=== PATIENT | male | born 1975 | race Two or more races ===

== ENCOUNTER 2022-03-22 08:24 | Outpatient (CLI) | payer OTHER | END 2022-03-22 08:25 | disposition home or self-care (01) | LOC: LAB 08:24 | PROVIDERS: ATTEND Surgery | DX: Z03.818 Encounter for observation for suspected exposure to other biological agents ruled out (principal); I10 Essential (primary) hypertension; R10.9 Unspecified abdominal pain ==

== ENCOUNTER 2022-04-12 05:00 | Day surgery (SDC) | payer OTHER ==
[~2022-04-12] VITALS: Ht 167.6 cm; Wt 73.5 kg
[~2022-04-12 05:00] MED LIST: COZAAR50 MG PO; NORVASC5 MG PO; PEPCID40 MG PO
[2022-04-12] MEDS ORDERED: NEURONTIN300 MG PO (07:45)
[2022-04-12] MEDS ORDERED: TYLENOL ARTHRI650 MG PO (07:45)
[2022-04-12] MEDS ORDERED: MIRALAX17 GM PO (07:45)
[2022-04-12] MEDS ORDERED: ULTRAM50 MG PO (07:45)
== END 2022-04-12 14:55 | disposition home or self-care (01) ==
LOC: CIR.AMB 05:00
PROVIDERS: ATTEND Surgery
DX: K40.90 Unilateral inguinal hernia, without obstruction or gangrene, not specified as recurrent (principal); K42.9 Umbilical hernia without obstruction or gangrene; K21.9 Gastro-esophageal reflux disease without esophagitis; I10 Essential (primary) hypertension; M51.36 Other intervertebral disc degeneration, lumbar region; Z20.822 Contact with and (suspected) exposure to COVID-19